=== PATIENT | female | born 1950 | race Caucasian/White ===

== ENCOUNTER 2020-07-31 10:22 | Inpatient (IN) | payer MEDICARE, BC, SELFPAY ==
[2020-07-31] VITALS (57 sets, daily range): BP systolic 112–146; BP diastolic 61–85; PULSE 101–124; RESP 10–25; TEMP 36.1–36.8; O2SAT 92–97
--- NOTE | 2020-07-31 10:30 | RT.EKG_ITS ---
APPROVED REPORT Exam: Resting ECG Patient Location: E HR:106 bpm ECG Measurements Heart Rate 106 AXIS UT 167 P 38 QRSd 90 QRS 24 QT 336 T 30 QTc 447 Conclusion Sinus tachycardia...rate> 99
--- NOTE | 2020-07-31 10:45 | ED.GENADUL_ITS ---
Discharge Plan Disposition Patient Disposition: [facility] INPATIENT Condition: Stable Discharge Details Chief Complaint: Nausea/Vomit/Diar Clinical Impression: Vomiting Primary Care Provider: Jelena Jaramillo ED Provider: Jeffrey Marroquin Home Meds and New Rx's Prescriptions: No Action ibuprofen 200 MG tablet 400 - 600 mg PO PRN RF: 0 Cholest Off 450 MG tablet 2 tab PO BID RF: 0 docusate sodium 50 mg Capsule 50 mg PO DAILY PRNRF: 0 prochlorperazine maleate 10 mg Tablet 10 mg PO Q6H PRNRF: 0 tramadol 50 mg Tablet 50 mg PO Q8H PRNRF: 0 lorazepam 0.5 mg Tablet 0.5 mg PO Q4H PRN PRNRF: 0 dexamethasone 2 mg Tablet See Rx Instructions .ROUTE .COMPLEX RF: 0 omeprazole 20 mg Capsule,Delayed Release(Dr/Ec) 20 mg PO DAILY RF: 0 loratadine [Claritin] 10 mg Tablet 10 mg PO DAILY RF: 0 ondansetron HCl 4 MG tablet 8 mg PO Q8H PRN RF: 0 Discharge Instructions Referrals: Osmin Alex [ NON-[facility] STAFF PHYSICIAN] - Medical Decision Making 70-year-old female with right breast cancer for which she is receiving chemotherapy. Her second dose was July 22. Now with 2 to 3 days of general weakness, intermittent pounding headache, nausea and vomiting with intolerance of p.o. She has not had a fever. No bloody stool or emesis. She has not fallen or hit her head. She is tachycardic and dehydrated in appearance. Differential diagnosis includes dehydration, electrolyte/metabolic abnormalities, must exclude metastatic disease to brain or abdomen. Patient had IV access established, fluid bolus initiated, given antiemetic and referred for laboratory testing and imaging studies. Labs noted demargination of white blood cell count of 26, hematocrit of 32, platelets 174. Electrolytes noted sodium 135, potassium 3.4, BUN 13, creatinine 1.2. No comparisons available. LFTs are slightly elevated with an AST of 40, ALT 122. Total bili 0.2. Lipase 123. CT scan of the head without acute findings. CT chest/abd/pelvis no evidence of acute abnormality, no evidence of metastatic disease. Patient improved following medications, small aliquot of morphine, 2 L of fluid. She continues to struggle to be able to take adequate liquids by mouth and remains tachycardic with a pulse at rest of 120. With discussed admission for fluid resuscitation with hospitalist team. Lab Data Lab results reviewed: Yes I reviewed the patient's lab results. Labs: Laboratory Results - last 24 hr 07/31/20 07/31/20 11:07 11:07 WBC 26.46 H* RBC 3.63 L Hgb 10.9 L Hct 32.9 L MCV 90.6 MCH 30.0 MCHC 33.1 RDW 13.2 Plt Count 174 MPV 10.0 Immature Gran % See Differential Neutrophils % 55.0 Band Neutrophils % 24 Lymphocytes % 7.0 Monocytes % 6.0 Eosinophils % 0.0 Basophils % 0.0 Metamyelocytes % 3 Myelocytes % 5 Nucleated RBC % 0 Absolute Neutrophils 20.90 H Absolute Lymphocytes 1.85 Absolute Monocytes 1.59 H Absolute Eosinophils 0.00 Absolute Basophils 0.00 RBC Morphology See below Polychromasia Present Sodium 135 L Potassium 3.4 L Chloride 99 Carbon Dioxide 27.5 Anion Gap 8.5 BUN 13 Creatinine 1.27 H Estimated GFR/1.73 m2 41.36 Glucose 139 H Calcium 9.2 Magnesium 1.7 L Total Bilirubin 0.2 AST 40 H ALT 122 H Alkaline Phosphatase 256 H Troponin I < 0.05 Total Protein 6.7 Albumin 3.5 Lipase 123 HPI General Mode of arrival: ambulatory . Date/Time Provider Initiated Documentation: 07/31/20 10:23 . Limitations to Documentation: no limitations . Information obtained by: patient . History of Present Illness 70 year old F presents to the emergency department with the chief complaint of Vomiting, headache, breast cancer on chemotherapy, described as moderate, Quality is described as constant, and is localized to the head and abdomen. Patient reports no radiation. Patient started experiencing this day(s) and it has been intermittent. No relieving factors improve symptom(s), Eating worsens symptoms . Patient notes headaches, loss of appetite, nausea/vomiting and weakness; denies fever/chills, shortness of breath and syncope. Related Data Home Medications Medication Instructions Recorded Confirmed ibuprofen 400 - 600 mg PO PRN 06/24/13 07/31/20 plant stanol rachel [Cholest Off] 2 tab PO BID 06/24/13 07/31/20 dexamethasone See Rx Instructions .ROUTE .COMPLEX 07/31/20 07/31/20 docusate sodium 50 mg PO DAILY PRN 07/31/20 07/31/20 loratadine [Claritin] 10 mg PO DAILY 07/31/20 07/31/20 lorazepam 0.5 mg PO Q4H PRN PRN 07/31/20 07/31/20 omeprazole 20 mg PO DAILY 07/31/20 07/31/20 ondansetron HCl 8 mg PO Q8H PRN 07/31/20 07/31/20 prochlorperazine maleate 10 mg PO Q6H PRN 07/31/20 07/31/20 tramadol 50 mg PO Q8H PRN 07/31/20 07/31/20 Allergies Allergy/AdvReac Type Severity Reaction Status Date / Time No Known Allergies Allergy Unverified 07/31/20 10:33 General Stated Complaint: Nausea/Vomit/Diar DENIZ: 3 Review of Systems Narrative: 6 systems reviewed and otherwise negative. [facility] Medical History Breast mass, right Surgical History Biopsy of breast NEG X 2 Colonoscopy - IV Sedation (~09/2006) Family History Mother Heart disease ID Father Heart disease ID Sister No problems noted. Sister No problems noted. Brother Heart disease ID Social History Substance use type: does not use Do you feel safe at home: Yes Do you feel safe in your relationship?: Yes Exam Narrative Exam Narrative: GEN: awake, alert, oriented 3. Pleasant, well groomed, interactive. HEAD: Normocephalic, atraumatic ENT: Mucous membranes dry, oropharynx unremarkable, External ear exam unremarkable EYES: PERRL, EOMI NECK: Full ROM, no MARISOL, no menigismus CHEST/RESP: Nontender, clear to auscultation bilateral, no wheeze/rhonchi/rales CARDIOVASCULAR: RRR, tachycardic. 2+ Rad pulse bilateral ABDOMEN: Soft, nontender, no mass. +Bowel sounds EXT: Full ROM, no edema, no rash Neuro: Grossly normal neurologic exam, conversant, interactive. Psych: Speech fluent, thoughts congruent, affect flat Course Vital Signs Vital signs: Vital Signs Temperature 36.1 C L 07/31/20 10:30 Pulse 113 H 07/31/20 10:30 Respiratory Rate 07/31/20 10:30 Blood Pressure 144/85 H 07/31/20 10:30 Pulse Oximetry 94 L 07/31/20 10:30 Temperature 36.1 C L 07/31/20 10:30 Temperature Source Skin 07/31/20 10:30 Pulse 113 H 07/31/20 10:30 Respiratory Rate 07/31/20 10:30 Blood Pressure 144/85 H 07/31/20 10:30 Blood Pressure Position Sitting 07/31/20 10:30 Pulse Oximetry 94 L 07/31/20 10:30 Oxygen Delivery Method Room Air 07/31/20 10:30 Oxygen Flow Rate 0 07/31/20 10:30 Pain Level 07/31/20 10:30
--- NOTE | 2020-07-31 10:45 | DI.CT_ITS ---
EXAM: CT HEAD WO CLINICAL HISTORY: Vomiting, history of breast cancer. TECHNIQUE: Imaging Protocol: Axial computed tomography images with coronal and sagittal reformatted images were created and reviewed COMPARISON: No exams were available for comparison FINDINGS: Ventricles and Extra axial spaces: Normal in size and morphology for the patient's age. Hemorrhage: None. Cerebral parenchyma: Normal. Midline shift: None. Brainstem/Cerebellum: Normal. Calvarium: Normal. Visualized Paranasal sinuses/Mastoids: Clear. IMPRESSION: No acute intracranial process. RADIATION DOSE DELIVERED: Total DLP DATA REPOSITORY: All CT scans at this facility are submitted to the National Radiology Data Registry (NRDR) Dose Index Registry (DIR) with the [employer] (ACR). RADIATION OPTIMIZATION: All CT scans at this facility use at least one of these dose optimization te chniques: automated exposure control; mA and/or kV adjustment per patient size (includes targeted exa ms where dose is matched to clinical indication); or iterative reconstruction.
[2020-07-31] MEDS: Normal Saline 1,000 ML 1000 ML IV ×2 (11:01→12:50)
[2020-07-31] MEDS: Ondansetron 4 MG/2 ML VIAL IVP (11:02)
[2020-07-31] MEDS: ACETAMINOPHEN 1,000 MG/100 ML BTL 400 MG IVPB (11:02)
[2020-07-31 11:19] LABS: Abs Immature Grans 2.95 10^3/uL (0.0-0.06); HCT 32.9 % (36.0-46.0); HGB 10.9 g/dL (11.2-15.7); MCHC 33.1 % (32.0-36.0); MCV 90.6 fL (80-95); Nucleated RBC 0 %; Platelet Count 174 10^3/uL (130-400); RBC 3.63 10^6/uL (3.93-5.22); RDW 13.2 % (11.7-14.6); RDW-SD 43.3 fL
[2020-07-31 11:28] LABS: WBC 26.46 10^3/uL (4.4-10.8)
[2020-07-31 11:46] LABS: ALT 122 U/L (14-59); AST 40 U/L (15-37); Albumin 3.5 g/dL (3.4-5.0); Alkaline Phosphatase 256 U/L (46-116); Anion Gap 8.5 mmol/L (3-11); BUN 13 mg/dL (7-18); Bilirubin, Total 0.2 mg/dL (0.2-1.0); CO2 27.5 mmol/L (21.0-32.0); CREATININE 1.27 mg/dL (0.55-1.02); Calcium 9.2 mg/dL (8.5-10.1); Chloride 99 mmol/L (98-107); Estimated GFR 41.36 (mL/min/1.73m2); Glucose 139 mg/dL (74-106); Lipase 123 U/L (73-393); Magnesium 1.7 mg/dL (1.8-2.4); Potassium 3.4 mmol/L (3.5-5.1); Sodium 135 mmol/L (136-145); Total Protein 6.7 g/dL (6.4-8.2); Troponin I < 0.05 ng/mL (<0.06)
[2020-07-31 11:54] LABS: Absolute Lymphocyte Count 1.85 10^3/uL (1.2-3.4); Absolute Monocyte Count 1.59 10^3/uL (0.1-0.8); Bands % 24; Metamyelocytes % 3; Myelocytes % 5
[2020-07-31 11:55] LABS: Diff Comment Manual Differential; Polychromasia Present
--- NOTE | 2020-07-31 12:00 | DI.CT_ITS ---
EXAM: CT CHEST/ABD/PEL W CLINICAL HISTORY: R Breast Ca, vomiting.. TECHNIQUE: Imaging Protocol: Axial computed tomography images with coronal and sagittal reformatted images were created and reviewed CONTRAST MATERIAL: Intravenous: Omnipaque 350 Contrast volume:100 Oral: / no COMPARISON: No exams were available for comparison FINDINGS: CHEST: A port overlies the left chest. The tip lies in the right atrium. Lungs appear clear with the excep tion of minimal basilar atelectasis. No pulmonary nodules are seen. There are atherosclerotic harrell es of the aorta and coronary arteries but no evidence of aneurysm or dissection. There are no pulmon jolly emboli. No lytic or blastic bony lesions or compression fractures are seen. ABDOMEN: Liver: Normal density. No measurable mass. Gallbladder and biliary tract: No radiodense calculus or dilation. Pancreas: Normal density, no abnormal calcifications or inflammatory process. Spleen: Normal. Kidneys: Normal size, contour and axis. No radiodense stones or obstructive uropathy. No masses seen. Adrenal glands: No masses seen. Aorta: Abdominal portion non-dilated. Atherosclerotic calcifications. Lymph nodes: Within normal limits. PELVIS: Bladder: Symmetric distention, no gross wall thickening. Bowel: No obstruction or bowel wall thickening. Normal appendix. Normal quantity of stool. Peritoneal cavity: No ascites, collection or mesenteric inflammatory response. Bones: Mild degenerative disc changes. Reproductive organs: Question of thickening of the endometrial stripe. Ovaries are normal in size. IMPRESSION: No evidence of an acute abnormality in the chest abdomen or pelvis. There is no evidence metastatic disease. There is apparent thickening of the endometrial stripe. Further evaluation with ultrasound is recommended. RADIATION DOSE DELIVERED: Total DLP DATA REPOSITORY: All CT scans at this facility are submitted to the National Radiology Data Registry (NRDR) Dose Index Registry (DIR) with the [employer] (ACR). RADIATION OPTIMIZATION: All CT scans at this facility use at least one of these dose optimization te chniques: automated exposure control; mA and/or kV adjustment per patient size (includes targeted exa ms where dose is matched to clinical indication); or iterative reconstruction.
[2020-07-31] MEDS: Omnipaque 350 MG/ML 100 ML BTL IJ (12:53)
[2020-07-31] MEDS: Normal Saline - Diluent 50 ML VIAL IV (12:53)
[2020-07-31] MEDS: Normal Saline Flush 10 ML SYR IVP (12:54)
--- NOTE | 2020-07-31 14:43 | NUR.NOTE ---
Nursing Note: Popsicle provided per MD Marroquin request to assess PO challenge.
[2020-07-31] MEDS: Normal Saline 1,000 ML 150 ML IV ×2 (17:39→23:53)
[2020-07-31] MEDS: Ketorolac 30 MG/ML VIAL IVP (18:12)
[2020-07-31] MEDS: Enoxaparin 40 MG/0.4 ML SYR SC (18:12)
[2020-07-31] MEDS: Pantoprazole 40 MG VIAL IVP (21:46)
[2020-07-31 22:21] LABS: Bilirubin Negative (Negative); Blood Trace-intact (Negative); Clarity Clear (Clear); Glucose Negative (Negative); Ketones Negative (Negative); Leukocyte Esterase Negative (Negative); Nitrite Negative (Negative); Urobilinogen 0.2 EU/dL (Up TO 0.2); pH 6.5 (5-8)
[2020-07-31 22:24] LABS: Bacteria Rare HPF (Negative); C & S Indicated? No; Casts Negative LPF (Negative); Crystals Negative HPF (Negative); Epithelial Cells Few HPF (Negative); Mucus Negative (Negative); WBC Negative HPF (0-5)
[2020-08-01 01:15] LABS: COVID-19 RT-PCR UVMMC Result Negative (Negative)
[2020-08-01] MEDS: Ketorolac 30 MG/ML VIAL IVP (05:10)
[2020-08-01] MEDS: Normal Saline 1,000 ML 150 ML IV (06:03)
[2020-08-01] MEDS: Normal Saline Flush 10 ML SYR IVP ×3 (06:06→23:16)
--- NOTE | 2020-08-01 06:30 | W.PM.HP.N ---
Date of service: 07/31/20 Time of Service: 05:31 Assessment and Plan Assessment and plan (1) Intractable vomiting: Status: Acute Assessment and plan: Related to chemotherapy. Improved after IV Zofran but escalting again at time of arrival to the med-surg unit Phenergan 12.5mg IV Q4 prn option added. Cont IV fluids. Qualifiers: Nausea presence: with nausea (2) Headache: Status: Acute Assessment and plan: Related to vomitting and dehydration Morphine 2mg IV helped for a period of time in the ED Will add Toradol prn Qualifiers: Headache type: unspecified Headache chronicity pattern: acute headache (3) Breast cancer: Status: Chronic Assessment and plan: In treatment with chemotherapy; s/p second round on 07/22/2020 (4) Renal insufficiency: Status: Chronic Assessment and plan: Creatinine 1.27 Pre-renal secondary to volume loss from emesis. IV fluids. Monitor (5) Hypokalemia: Status: Acute Assessment and plan: Mild; K of 3.4 Replace oral when able. IV replacement. (6) Leukocytosis, unspecified: Status: Acute Assessment and plan: No infectious source noted. No fever. UA normal. No resp symptoms Likely demargination of WBC's from the stress of intractable vomitting Monitor History of Present Illness History of Present Illness Chief Complaint: Intractible vomitting Narrative: This is a 70 year old female that presented to the emergency department with chief complaint of Vomiting. She has a recent breast cancer diagnoses. She completed her second round of chemotherapy on 07/22/2020 and has had 2-3 days of N/V along with a headache. No radiation tx. Her N/V are worsened with oral intake. No fever, chills, shortness of breath, syncope. Labs significant for elevated WBC count of 26.46, Hgb of 10.9, platelets 174. K+ 3.4, Na 135, BUN 13, creatinine 1.2. Lipase 123. CT scan of the head without acute findings. CT chest/abd/pelvis no evidence of acute abnormality, no evidence of metastatic disease. Patient improved after receiving 2 L of IV fluids, IV Zofran and IV morphine 2mg. Review of Systems All systems reviewed & are unremarkable except as noted in HPI and below PFSH Medical History Breast mass, right Surgical History Biopsy of breast NEG X 2 Colonoscopy - IV Sedation (~09/2006) Family History Mother Heart disease [place] Father Heart disease [place] Sister No problems noted. Sister No problems noted. Brother Heart disease [place] Social History Smoking/Tobacco Use Status: Never Substance use type: does not use Do you feel safe at home: Yes Do you feel safe in your relationship?: Yes Meds Home Medications and Allergies Home Medications Medication Instructions Recorded Confirmed Type ibuprofen 400 - 600 mg PO PRN 06/24/13 07/31/20 History plant stanol rachel [Cholest Off] 2 tab PO BID 06/24/13 07/31/20 History dexamethasone See Rx Instructions .ROUTE .COMPLEX 07/31/20 07/31/20 History docusate sodium 50 mg PO DAILY PRN 07/31/20 07/31/20 History loratadine [Claritin] 10 mg PO DAILY 07/31/20 07/31/20 History lorazepam 0.5 mg PO Q4H PRN PRN 07/31/20 07/31/20 History omeprazole 20 mg PO DAILY 07/31/20 07/31/20 History ondansetron HCl 8 mg PO Q8H PRN 07/31/20 07/31/20 History prochlorperazine maleate 10 mg PO Q6H PRN 07/31/20 07/31/20 History tramadol 50 mg PO Q8H PRN 07/31/20 07/31/20 History Allergies Allergy/AdvReac Type Severity Reaction Status Date / Time No Known Allergies Allergy Unverified 07/31/20 10:33 Exam Const General: cooperative and ill appearing Nutritional Appearance: average body habitus Orientation: oriented x3 Eyes Sclera: sclerae normal Pupils: PERRL Resp Effort & Inspection: normal respiratory effort Auscultation: clear to auscultation bilaterally Cardio Rate: regular rate Rhythm: regular rhythm Heart Sounds: S1 normal and S2 normal GI Inspection: normal to inspection Palpation: soft Percussion: normal to percussion Auscultation: hyperactive bowel sounds Skin General skin exam: no rashes or lesions noted Extrem General: no clubbing, cyanosis or edema and no calf tenderness Results Labs Result diagrams: 07/31/20 11:07 07/31/20 11:07 Labs: Laboratory Results - last 24 hr 07/31/20 07/31/20 07/31/20 11:07 11:07 17:05 WBC 26.46 H* RBC 3.63 L Hgb 10.9 L Hct 32.9 L MCV 90.6 MCH 30.0 MCHC 33.1 RDW 13.2 Plt Count 174 MPV 10.0 Immature Gran % See Differential Neutrophils % 55.0 Band Neutrophils % 24 Lymphocytes % 7.0 Monocytes % 6.0 Eosinophils % 0.0 Basophils % 0.0 Metamyelocytes % 3 Myelocytes % 5 Nucleated RBC % 0 Absolute Neutrophils 20.90 H Absolute Lymphocytes 1.85 Absolute Monocytes 1.59 H Absolute Eosinophils 0.00 Absolute Basophils 0.00 RBC Morphology See below Polychromasia Present Sodium 135 L Potassium 3.4 L Chloride 99 Carbon Dioxide 27.5 Anion Gap 8.5 BUN 13 Creatinine 1.27 H Estimated GFR/1.73 m2 41.36 Glucose 139 H Calcium 9.2 Magnesium 1.7 L Total Bilirubin 0.2 AST 40 H ALT 122 H Alkaline Phosphatase 256 H Troponin I < 0.05 Total Protein 6.7 Albumin 3.5 Lipase 123 Urine Color Urine Clarity Urine pH Ur Specific [place] Urine Protein Urine Ketones Urine Blood Urine Nitrite Urine Bilirubin Urine Urobilinogen Ur Leukocyte Esterase Urine RBC Urine WBC Ur Epithelial Cells Urine Crystals Urine Bacteria Urine Casts Urine Mucus Ur Culture Indicated? Urine Glucose COVID-19 PCR Negative Nasopharyn COVID-19 PCR Not Applicable Ref Test Perform Site [place] [facility] 07/31/20 22:00 WBC RBC Hgb Hct MCV MCH MCHC RDW Plt Count MPV Immature Gran % Neutrophils % Band Neutrophils % Lymphocytes % Monocytes % Eosinophils % Basophils % Metamyelocytes % Myelocytes % Nucleated RBC % Absolute Neutrophils Absolute Lymphocytes Absolute Monocytes Absolute Eosinophils Absolute Basophils RBC Morphology Polychromasia Sodium Potassium Chloride Carbon Dioxide Anion Gap BUN Creatinine Estimated GFR/1.73 m2 Glucose Calcium Magnesium Total Bilirubin AST ALT Alkaline Phosphatase Troponin I Total Protein Albumin Lipase Urine Color Yellow Urine Clarity Clear Urine pH 6.5 Ur Specific [place] 1.010 Urine Protein Negative Urine Ketones Negative Urine Blood Trace-intact H Urine Nitrite Negative Urine Bilirubin Negative Urine Urobilinogen 0.2 Ur Leukocyte Esterase Negative Urine RBC 3-5 H Urine WBC Negative Ur Epithelial Cells Few Urine Crystals Negative Urine Bacteria Rare Urine Casts Negative Urine Mucus Negative Ur Culture Indicated? No Urine Glucose Negative COVID-19 PCR Nasopharyn COVID-19 PCR Ref Test Perform Site Last Vital Signs Temp 36.7 C 07/31/20 23:20 Pulse 109 H 07/31/20 23:20 Resp 17 07/31/20 23:20 BP 120/73 07/31/20 23:20 Pulse Ox 97 07/31/20 23:20 COVID-19 Screening Have you,or household,traveled outside [place] in last 14 days?: No Had IN PERSON contact w/suspected or confirmed C-19 person: No
[2020-08-01 07:16] LABS: Abs Immature Grans 1.97 10^3/uL (0.0-0.06); HCT 30.2 % (36.0-46.0); HGB 9.5 g/dL (11.2-15.7); MCH 29.3 pg (27.0-33.0); MCHC 31.5 % (32.0-36.0); MCV 93.2 fL (80-95); MPV 10.2 fL (8.0-11.0); Platelet Count 154 10^3/uL (130-400); RBC 3.24 10^6/uL (3.93-5.22); RDW 13.6 % (11.7-14.6); RDW-SD 46.1 fL
[2020-08-01 07:17] LABS: BUN 10 mg/dL (7-18); CREATININE 1.08 mg/dL (0.55-1.02); Calcium 8.3 mg/dL (8.5-10.1); Chloride 106 mmol/L (98-107); Estimated GFR 49.87 (mL/min/1.73m2); Magnesium 1.6 mg/dL (1.8-2.4); Potassium 3.4 mmol/L (3.5-5.1); Sodium 139 mmol/L (136-145)
[2020-08-01 07:41] LABS: WBC 25.43 10^3/uL (4.4-10.8)
[2020-08-01 07:52] LABS: Glucose 80 mg/dL (74-106)
[2020-08-01 08:07] VITALS: BP 127/77; PULSE 97; RESP 18; TEMP 36.5; O2SAT 97
[2020-08-01 08:14] LABS: Bands % 18
[2020-08-01 08:15] LABS: Absolute Lymphocyte Count 1.78 10^3/uL (1.2-3.4); Absolute Monocyte Count 1.53 10^3/uL (0.1-0.8); Diff Comment Manual Differential; Metamyelocytes % 4; Myelocytes % 2
[2020-08-01 08:16] LABS: Basophilic Stippling Present; Polychromasia Present
--- NOTE | 2020-08-01 09:11 | PDOC.CMIN ---
- If Service Date Differs Date of service: 08/01/20 Time of Service: 17:06 Care Management Initial Assess REASON FOR HOSPITALIZATION:: Vomitting PAST MEDICAL HISTORY/PAST SURGICAL HISTORY:: This is a 70 year old female that presented to the emergency department with chief complaint of Vomiting. She has a recent breast cancer diagnoses. She completed her second round of chemotherapy on 07/22/2020 and has had 2-3 days of N/V along with a headache. Breast mass; right. Breast biopsy, colonoscopy PREVIOUS FUNCTIONAL STATUS/SOCIAL/FAMILY SUPPORTS:: Lorri resides in [facility] with her , [place]. She is independent at baseline, but currently struggling with the side effects of chemotherapy. CURRENT FUNCTIONAL STATUS:: Lorri did not feel well throughout the day, she is struggling with intense migraines and had her door shut with low stim environment. CM continues to follow. Has patient been provided with info about the portal/API?: Yes Did the patient sign up for the portal?: No CODE STATUS:: Full Code INSURANCE COVERAGE / FINANCIAL ISSUES:: Medicare. BC/BS CURRENT HOME/COMMUNITY SERVICES/EQUIPMENT:: Current oncology patient at [facility]: chemotherapy for breast cancer. PRIMARY CARE PHYSICIAN:: Jelena Jaramillo POTENTIAL DISCHARGE NEEDS:: Follow up appointments. PATIENT/FAMILY EDUCATION NEEDS:: Review discharge instructions, discuss Ask Me Three. ANTICIPATED BARRIERS TO DISCHARGE:: None identified. TRANSPORTATION:: Via private vehicle with family. PLAN:: Lorri will return home when ready per MD. She will follow up with her PCP, oncologist and plan of care as prescribed. She will transport via private vehicle with family.
[2020-08-01] MEDS: Cetirizine 10 MG TAB PO (09:54)
[2020-08-01] MEDS: MAGNESIUM SULFATE 2 GM/50 ML BAG IVPB (09:54)
[2020-08-01] MEDS: POTASSIUM CHLORIDE/0.9% NACL 1,000 ML 100 MEQ IV ×2 (09:58→20:07)
[2020-08-01] MEDS: SUMAtriptan 6 MG/0.5 ML VIAL SC (11:22)
--- NOTE | 2020-08-01 14:09 | W.PM.PROGNOT ---
Date of Service Date of service: 08/01/20 Time of Service: 14:12 Assessment and Plan Assessment and plan (1) Headache: Start date: 08/01/20 Start time: 14:40 Status: Acute Assessment and plan: This sounds to be migraine in nature, with blurred vision, n/v, lightheadedness, CT scan revealing sinus to be clear. N/v gets worse when getting up and rachel gets worse when getting up, this is likely d/t chemo Tried 100% oxygen, little relief Given imitrex with moderate relief. Will give IM phenergan and toradol, with muscle relaxer at bed time Qualifiers: Headache chronicity pattern: acute headache Intractability: intractable (2) Intractable vomiting: Start date: 08/01/20 Start time: 14:40 Status: Acute Assessment and plan: Improving, tolerating clears, improving sx with improving migraine, will advance to soft diet. Qualifiers: Nausea presence: with nausea (3) Breast cancer: Start date: 08/01/20 Start time: 14:47 Status: Chronic Assessment and plan: In treatment with chemotherapy; s/p second round on 07/22/2020 Qualifiers: Breast location: unspecified site of breast Estrogen receptor status: positive Patient sex: female Laterality: right Qualified Code(s): C50.911 - Malignant neoplasm of unspecified site of right female breast; Z17.0 - Estrogen receptor positive status [ER+] (4) Renal insufficiency: Start date: 08/01/20 Start time: 14:47 Status: Chronic Assessment and plan: Improved. Creatinine 1.08 will recheck in am (5) Hypokalemia: Start date: 08/01/20 Start time: 14:48 Status: Acute Assessment and plan: Mild; K of 3.4 IV replacement. (6) Leukocytosis, unspecified: Start date: 08/01/20 Start time: 14:48 Status: Acute Assessment and plan: No infectious source noted. No fever. UA normal. No resp symptoms She does take dexamethasone BID post chemo which could drive the leukocytosis with n/v as well recheck in am Above case discussed with Dr. Santo who is in agreement. Qualifiers: Leukocytosis type: other Qualified Code(s): D72.828 - Other elevated white blood cell count Subjective Subjective Patient reports: other Interval history since last seen: She is not feeling well today, c/o rachel that sound to be a migraine in nature, blurred vision, light sensitivity, dizziness, when patient gets up she then feels the need to vomit, her rachel also gets worse. Tried 100% oxygen with minimal relief, then given imitrex subcu, this has given more relief but still c/o dizziness, blurred vision, n/v Exam Const General: cooperative and ill appearing Nutritional Appearance: average body habitus Orientation: oriented x3 Eyes Sclera: sclerae normal Pupils: PERRL Resp Effort & Inspection: normal respiratory effort Auscultation: clear to auscultation bilaterally Cardio Rate: regular rate Rhythm: regular rhythm Heart Sounds: S1 normal and S2 normal GI Inspection: normal to inspection Palpation: soft Percussion: normal to percussion Auscultation: hyperactive bowel sounds Skin General skin exam: no rashes or lesions noted Extrem General: no clubbing, cyanosis or edema and no calf tenderness Objective Objective Clinical Data: Abnormal lab results 07/31/20 08/01/20 08/01/20 Range/Units 22:00 06:10 06:10 WBC 25.43 H* (4.4-10.8) 10^3/uL RBC 3.24 L (3.93-5.22) 10^6/uL Hgb 9.5 L (11.2-15.7) g/dL Hct 30.2 L (36.0-46.0) % MCHC 31.5 L (32.0-36.0) % Absolute Neutrophils 20.60 H (1.2-6.7) 10^3/uL Absolute Monocytes 1.53 H (0.1-0.8) 10^3/uL Potassium 3.4 L (3.5-5.1) mmol/L Creatinine 1.08 H (0.55-1.02) mg/dL Calcium 8.3 L (8.5-10.1) mg/dL Magnesium 1.6 L (1.8-2.4) mg/dL Urine Blood Trace-intact H (Negative) Urine RBC 3-5 H (0-2) HPF Vital Signs Temperature 36.5 C 08/01/20 08:07 Temperature Source Tympanic 08/01/20 08:07 Pulse 97 H 08/01/20 08:07 Pulse Rhythm Regular 08/01/20 10:46 Pulse 109 H 07/31/20 16:50 Respiratory Rate 18 08/01/20 08:07 Respiratory Effort Non-Labored 08/01/20 10:46 Respiratory Depth Normal 08/01/20 10:46 Respiratory Pattern Normal 08/01/20 10:46 Blood Pressure 127/77 08/01/20 08:07 Blood Pressure Mean 78 07/31/20 16:31 Blood Pressure Position Sitting 07/31/20 10:30 Pulse Oximetry 97 08/01/20 08:07 Oxygen Delivery Method Room Air 08/01/20 08:07 Oxygen Flow Rate 0 08/01/20 08:07 Pain Level 7 08/01/20 08:07 Comment 07/31/20 23:20 Intake & Output 07/31/20 08/01/20 08/01/20 23:59 11:59 23:59 Intake Total 1935 / 1935 2577.5 / 2628.5 51 / 2628.5 Output Total 900 / 900 Balance 1035 / 1035 2577.5 / 2628.5 51 / 2628.5 Weight 53.524 kg Intake: IV 1935 / 1935 2217.5 / 2268.5 51 / 2268.5 Oral 360 / 360 Output: Urine 800 / 800 Emesis 100 / 100 Other: Urine Color Pale Yellow Urine Appearance Clear Clear Urine Odor None Comment Was unaware the patient needed a urine specimen, rn aware. Emesis Description Retching Bile Voiding Methods Toilet Laboratory Results WBC 25.43 10^3/uL (4.4-10.8) H* 08/01/20 06:10 RBC 3.24 10^6/uL (3.93-5.22) L 08/01/20 06:10 Hgb 9.5 g/dL (11.2-15.7) L 08/01/20 06:10 Hct 30.2 % (36.0-46.0) L 08/01/20 06:10 MCV 93.2 fL (80-95) 08/01/20 06:10 MCH 29.3 pg (27.0-33.0) 08/01/20 06:10 MCHC 31.5 % (32.0-36.0) L 08/01/20 06:10 RDW 13.6 % (11.7-14.6) 08/01/20 06:10 Plt Count 154 10^3/uL (130-400) 08/01/20 06:10 MPV 10.2 fL (8.0-11.0) 08/01/20 06:10 Immature Gran % See Differential 08/01/20 06:10 Neutrophils % 63.0 08/01/20 06:10 Band Neutrophils % 18 08/01/20 06:10 Lymphocytes % 7.0 08/01/20 06:10 Monocytes % 6.0 08/01/20 06:10 Eosinophils % 0.0 08/01/20 06:10 Basophils % 0.0 08/01/20 06:10 Metamyelocytes % 4 08/01/20 06:10 Myelocytes % 2 08/01/20 06:10 Nucleated RBC % 0 % 07/31/20 11:07 Absolute Neutrophils 20.60 10^3/uL (1.2-6.7) H 08/01/20 06:10 Absolute Lymphocytes 1.78 10^3/uL (1.2-3.4) 08/01/20 06:10 Absolute Monocytes 1.53 10^3/uL (0.1-0.8) H 08/01/20 06:10 Absolute Eosinophils 0.00 10^3/uL (0.0-0.7) 08/01/20 06:10 Absolute Basophils 0.00 10^3/uL (0.0-0.2) 08/01/20 06:10 RBC Morphology See below 08/01/20 06:10 Polychromasia Present 08/01/20 06:10 Basophilic Stippling Present 08/01/20 06:10 Sodium 139 mmol/L (136-145) 08/01/20 06:10 Potassium 3.4 mmol/L (3.5-5.1) L 08/01/20 06:10 Chloride 106 mmol/L (98-107) 08/01/20 06:10 Carbon Dioxide 25.0 mmol/L (21.0-32.0) 08/01/20 06:10 Anion Gap 8.0 mmol/L (3-11) 08/01/20 06:10 BUN 10 mg/dL (7-18) 08/01/20 06:10 Creatinine 1.08 mg/dL (0.55-1.02) H 08/01/20 06:10 Estimated GFR/1.73 m2 49.87 (mL/min/1.73m2) 08/01/20 06:10 Glucose 80 mg/dL (74-106) D 08/01/20 06:10 Calcium 8.3 mg/dL (8.5-10.1) L 08/01/20 06:10 Magnesium 1.6 mg/dL (1.8-2.4) L 08/01/20 06:10 Total Bilirubin 0.2 mg/dL (0.2-1.0) 07/31/20 11:07 AST 40 U/L (15-37) H 07/31/20 11:07 ALT 122 U/L (14-59) H 07/31/20 11:07 Alkaline Phosphatase 256 U/L (46-116) H 07/31/20 11:07 Troponin I < 0.05 ng/mL (<0.06) 07/31/20 11:07 Total Protein 6.7 g/dL (6.4-8.2) 07/31/20 11:07 Albumin 3.5 g/dL (3.4-5.0) 07/31/20 11:07 Lipase 123 U/L (73-393) 07/31/20 11:07 Urine Color Yellow (Yellow) 07/31/20 22:00 Urine Clarity Clear (Clear) 07/31/20 22:00 Urine pH 6.5 (5-8) 07/31/20 22:00 Ur Specific [place] 1.010 (1.005-1.025) 07/31/20 22:00 Urine Protein Negative mg/dL (Negative) 07/31/20 22:00 Urine Ketones Negative mg/dL (Negative) 07/31/20 22:00 Urine Blood Trace-intact (Negative) H 07/31/20 22:00 Urine Nitrite Negative (Negative) 07/31/20 22:00 Urine Bilirubin Negative (Negative) 07/31/20 22:00 Urine Urobilinogen 0.2 EU/dL (Up TO 0.2) 07/31/20 22:00 Ur Leukocyte Esterase Negative (Negative) 07/31/20 22:00 Urine RBC 3-5 HPF (0-2) H 07/31/20 22:00 Urine WBC Negative HPF (0-5) 07/31/20 22:00 Ur Epithelial Cells Few HPF (Negative) 07/31/20 22:00 Urine Crystals Negative HPF (Negative) 07/31/20 22:00 Urine Bacteria Rare HPF (Negative) 07/31/20 22:00 Urine Casts Negative LPF (Negative) 07/31/20 22:00 Urine Mucus Negative (Negative) 07/31/20 22:00 Ur Culture Indicated? No 07/31/20 22:00 Urine Glucose Negative mg/dL (Negative) 07/31/20 22:00 COVID-19 PCR Negative (Negative) 07/31/20 17:05 Nasopharyn COVID-19 PCR Not Applicable 07/31/20 17:05 Ref Test Perform Site [facility] lab 07/31/20 17:05
--- NOTE | 2020-08-01 14:18 | PHA.REVIEW ---
Pharmacy Admission Review - Admission Clinical Review (Last Reviewed 08/01/20 @ 06:40 by Matthew Santo MD) Leukocytosis, unspecified (Acute) Hypokalemia (Acute) Headache (Acute) Intractable vomiting (Acute) Vomiting (Acute) No Known Allergies Allergy (Unverified 07/31/20 10:33) Height 5 ft 1.81 in Weight 53.524 kg - Renal Dosing Renal Dosing: BUN 10 mg/dL (7-18) 08/01/20 06:10 Creatinine 1.08 mg/dL (0.55-1.02) H 08/01/20 06:10 Medications needing adjustments: Intervened (suggested ketorolac dose of 30mg vs 60mg. provider would like the 60mg dose given as a one time) - Anticoagulation Anticoagulation: Hgb 9.5 g/dL (11.2-15.7) L 08/01/20 06:10 Hct 30.2 % (36.0-46.0) L 08/01/20 06:10 Plt Count 154 10^3/uL (130-400) 08/01/20 06:10 Creatinine 1.08 mg/dL (0.55-1.02) H 08/01/20 06:10 - Relevant Labs Sodium 139 mmol/L (136-145) 08/01/20 06:10 Potassium 3.4 mmol/L (3.5-5.1) L 08/01/20 06:10 Chloride 106 mmol/L (98-107) 08/01/20 06:10 Magnesium 1.6 mg/dL (1.8-2.4) L 08/01/20 06:10 - DM Control DM Control: Glucose 80 mg/dL (74-106) D 08/01/20 06:10 - Heart Failure/FL Heart Failure/FL: Troponin I < 0.05 ng/mL (<0.06) 07/31/20 11:07 - BP Control BP Control: Blood Pressure 127/77
[2020-08-01 15:20] VITALS: BP 138/74; PULSE 88; RESP 17; TEMP 37.2; O2SAT 96
[2020-08-01] MEDS: Ketorolac 60 MG/2 ML VIAL IM (15:42)
[2020-08-01] MEDS: Enoxaparin 40 MG/0.4 ML SYR SC (17:38)
[2020-08-01 19:30] VITALS: BP 123/73; PULSE 75; RESP 18; TEMP 37.2; O2SAT 97
[2020-08-01] MEDS: Pantoprazole 40 MG VIAL IVP (21:31)
[2020-08-01] MEDS: Baclofen 10 MG TAB PO (21:31)
[2020-08-01] MEDS: Ketorolac 15 MG/ML VIAL IVP (23:16)
[2020-08-02 03:15] VITALS: BP 133/84; PULSE 98; RESP 17; TEMP 36.4; O2SAT 97
[2020-08-02] MEDS: POTASSIUM CHLORIDE/0.9% NACL 1,000 ML 100 MEQ IV ×2 (06:03→17:12)
[2020-08-02] MEDS: Ketorolac 15 MG/ML VIAL IVP ×2 (06:34→19:04)
[2020-08-02] MEDS: Normal Saline Flush 10 ML SYR IVP ×4 (06:36→21:54)
[2020-08-02 07:27] LABS: Abs Immature Grans 1.68 10^3/uL (0.0-0.06); HCT 27.6 % (36.0-46.0); HGB 8.9 g/dL (11.2-15.7); MCH 29.4 pg (27.0-33.0); MCHC 32.2 % (32.0-36.0); MCV 91.1 fL (80-95); MPV 9.9 fL (8.0-11.0); Nucleated RBC 0 %; Platelet Count 140 10^3/uL (130-400); RBC 3.03 10^6/uL (3.93-5.22); RDW-SD 46.1 fL
[2020-08-02 07:31] LABS: Anion Gap 8.9 mmol/L (3-11); BUN 10 mg/dL (7-18); CO2 23.1 mmol/L (21.0-32.0); CREATININE 1.02 mg/dL (0.55-1.02); Calcium 8.5 mg/dL (8.5-10.1); Chloride 107 mmol/L (98-107); Estimated GFR 53.27 (mL/min/1.73m2); Glucose 71 mg/dL (74-106); Magnesium 1.9 mg/dL (1.8-2.4); Potassium 3.8 mmol/L (3.5-5.1); Sodium 139 mmol/L (136-145)
[2020-08-02 07:47] LABS: WBC 28.21 10^3/uL (4.4-10.8)
[2020-08-02] MEDS: Cetirizine 10 MG TAB PO (07:47)
[2020-08-02 07:48] VITALS: BP 159/86; PULSE 95; RESP 18; TEMP 36.9; O2SAT 98
[2020-08-02 07:49] LABS: Absolute Lymphocyte Count 1.69 10^3/uL (1.2-3.4); Absolute Monocyte Count 1.41 10^3/uL (0.1-0.8); Bands % 10; Diff Comment Manual Differential; Metamyelocytes % 4; Myelocytes % 1; Polychromasia Present
[2020-08-02 08:06] LABS: C-Reactive Protein 2.24 mg/dL (0.0-0.3)
[2020-08-02 08:22] LABS: Lactate 0.6 mmol/L (0.6-1.4)
[2020-08-02] MEDS: cefTRIAXone 2 GM/50 ML BAG IVPB (08:35)
[2020-08-02 08:53] LABS: Procalcitonin 0.1 ng/mL
--- NOTE | 2020-08-02 09:16 | W.PM.PROGNOT ---
Documented by User: Sonia Masters NP 08/02/20 09:33 Date of Service Date of service: 08/02/20 Time of Service: 09:16 Assessment and Plan Assessment and plan (1) Headache: Start date: 08/02/20 Start time: 09:25 Status: Acute Assessment and plan: Headache with neck pain continues. Increasing leukocytosis, procal at 0.1 with slightly elevated CRP, chemo could contribute to elevated CRP and procal, but in setting of leukocytosis will start prophylactic treatment for meningitis. Chemo pertuzumab according to Uptodate can lead to severe infections in 22% of population with 6% severe. Blood cultures pending Will defer to Dr. ashley for possible LP Qualifiers: Headache chronicity pattern: acute headache Intractability: intractable (2) Leukocytosis, unspecified: Start date: 08/02/20 Start time: 09:30 Status: Acute Assessment and plan: No infectious source noted. No fever. UA normal. No resp symptoms Increased this am to 28 with ANC increased As above Qualifiers: Leukocytosis type: other Qualified Code(s): D72.828 - Other elevated white blood cell count (3) Intractable vomiting: Start date: 08/02/20 Start time: 09:28 Status: Resolved Assessment and plan: Resolved. Able to tolerate soft diet Qualifiers: Nausea presence: with nausea (4) Breast cancer: Start date: 08/02/20 Start time: 09:29 Status: Chronic Assessment and plan: In treatment with chemotherapy; s/p second round on 07/22/2020 Qualifiers: Breast location: unspecified site of breast Estrogen receptor status: positive Laterality: right Patient sex: female Qualified Code(s): C50.911 - Malignant neoplasm of unspecified site of right female breast; Z17.0 - Estrogen receptor positive status [ER+] (5) Increased endometrial stripe thickness: Start date: 08/02/20 Start time: 09:31 Status: Acute Assessment and plan: Found on CT, given recent Breast Ca dx with current treatment will order pelvic u/s with gyno consult, for further investigation (6) Renal insufficiency: Start date: 08/02/20 Start time: 09:33 Status: Chronic Assessment and plan: Improved. Normal renal function (7) Hypokalemia: Start date: 08/02/20 Start time: 09:33 Status: Resolved Assessment and plan: 3.8 IV replacement. above case discussed with Dr. Ashley who is in agreement. Subjective Subjective Patient reports: other Interval history since last seen: Continues to have neck pain with headache. Increasing leukocytosis without fever, anemia present, drop in hemoglobin, could be due to dilution heme test stool. Concern for infection, crp is slightly elevated with elevated procal, lactate normal. There could be bacterial component, may need to preform LP, due to neck pain and migraine, will place on prophylactic treatment. Negative brudiniski and kernig. BC pending. will make inpatient, no nausea or vomiting at this time. Exam Narrative Exam Narrative: Elderly female, with thinning hair, due to chemo lying in bed, AAOx3, appears ill. Neck pain with throbbing sensation though able to move neck in all positions. LSC, RRR no murmur or ectopic beats. No JVD or CVA. FROM with all extremities. Abd soft nontender, BSx4 Objective Objective Clinical Data: Abnormal lab results 08/02/20 08/02/20 08/02/20 Range/Units 06:10 06:10 06:10 WBC 28.21 H* (4.4-10.8) 10^3/uL RBC 3.03 L (3.93-5.22) 10^6/uL Hgb 8.9 L (11.2-15.7) g/dL Hct 27.6 L (36.0-46.0) % Absolute Neutrophils 23.70 H (1.2-6.7) 10^3/uL Absolute Monocytes 1.41 H (0.1-0.8) 10^3/uL Glucose 71 L (74-106) mg/dL C-Reactive Protein 2.24 H (0.0-0.3) mg/dL Vital Signs Temperature 36.9 C 08/02/20 07:48 Temperature Source Tympanic 08/02/20 07:48 Pulse 95 H 08/02/20 07:48 Pulse Rhythm Regular 08/02/20 03:57 Pulse 109 H 07/31/20 16:50 Respiratory Rate 18 08/02/20 07:48 Respiratory Effort Non-Labored 08/02/20 03:57 Respiratory Depth Normal 08/02/20 03:57 Respiratory Pattern Normal 08/02/20 03:57 Blood Pressure 159/86 H 08/02/20 07:48 Blood Pressure Mean 78 07/31/20 16:31 Blood Pressure Position Sitting 07/31/20 10:30 Pulse Oximetry 98 08/02/20 07:48 Oxygen Delivery Method Room Air 08/02/20 07:48 Oxygen Flow Rate 0 08/02/20 07:48 Pain Level 4 08/02/20 07:48 Comment 07/31/20 23:20 Intake & Output 08/01/20 08/01/20 08/02/20 11:59 23:59 11:59 Intake Total 2577.5 / 3867.5 1290 / 3867.5 1003.333 / 1003.333 Output Total 200 / 200 600 / 600 Balance 2577.5 / 3667.5 1090 / 3667.5 403.333 / 403.333 Intake: IV 2217.5 / 3217.5 1000 / 3217.5 1003.333 / 1003.333 Oral 360 / 650 290 / 650 Output: Urine 200 / 200 600 / 600 Other: Urine Color Pale Yellow Yellow Urine Appearance Clear Clear Clear Urine Odor Normal Normal Stool Size Small Stool Characteristics Soft Formed Voiding Methods Bedside Commode Toilet Laboratory Results WBC 28.21 10^3/uL (4.4-10.8) H* 08/02/20 06:10 RBC 3.03 10^6/uL (3.93-5.22) L 08/02/20 06:10 Hgb 8.9 g/dL (11.2-15.7) L 08/02/20 06:10 Hct 27.6 % (36.0-46.0) L 08/02/20 06:10 MCV 91.1 fL (80-95) 08/02/20 06:10 MCH 29.4 pg (27.0-33.0) 08/02/20 06:10 MCHC 32.2 % (32.0-36.0) 08/02/20 06:10 RDW 14.0 % (11.7-14.6) 08/02/20 06:10 Plt Count 140 10^3/uL (130-400) 08/02/20 06:10 MPV 9.9 fL (8.0-11.0) 08/02/20 06:10 Immature Gran % See Differential 08/02/20 06:10 Neutrophils % 74.0 08/02/20 06:10 Band Neutrophils % 10 08/02/20 06:10 Lymphocytes % 6.0 08/02/20 06:10 Monocytes % 5.0 08/02/20 06:10 Eosinophils % 0.0 08/02/20 06:10 Basophils % 0.0 08/02/20 06:10 Metamyelocytes % 4 08/02/20 06:10 Myelocytes % 1 08/02/20 06:10 Nucleated RBC % 0 % 08/02/20 06:10 Absolute Neutrophils 23.70 10^3/uL (1.2-6.7) H 08/02/20 06:10 Absolute Lymphocytes 1.69 10^3/uL (1.2-3.4) 08/02/20 06:10 Absolute Monocytes 1.41 10^3/uL (0.1-0.8) H 08/02/20 06:10 Absolute Eosinophils 0.00 10^3/uL (0.0-0.7) 08/02/20 06:10 Absolute Basophils 0.00 10^3/uL (0.0-0.2) 08/02/20 06:10 RBC Morphology See below 08/02/20 06:10 Polychromasia Present 08/02/20 06:10 Basophilic Stippling Present 08/01/20 06:10 VBG Lactate 0.6 mmol/L (0.6-1.4) 08/02/20 08:12 Sodium 139 mmol/L (136-145) 08/02/20 06:10 Potassium 3.8 mmol/L (3.5-5.1) 08/02/20 06:10 Chloride 107 mmol/L (98-107) 08/02/20 06:10 Carbon Dioxide 23.1 mmol/L (21.0-32.0) 08/02/20 06:10 Anion Gap 8.9 mmol/L (3-11) 08/02/20 06:10 BUN 10 mg/dL (7-18) 08/02/20 06:10 Creatinine 1.02 mg/dL (0.55-1.02) 08/02/20 06:10 Estimated GFR/1.73 m2 53.27 (mL/min/1.73m2) 08/02/20 06:10 Glucose 71 mg/dL (74-106) L 08/02/20 06:10 Calcium 8.5 mg/dL (8.5-10.1) 08/02/20 06:10 Magnesium 1.9 mg/dL (1.8-2.4) 08/02/20 06:10 Total Bilirubin 0.2 mg/dL (0.2-1.0) 07/31/20 11:07 AST 40 U/L (15-37) H 07/31/20 11:07 ALT 122 U/L (14-59) H 07/31/20 11:07 Alkaline Phosphatase 256 U/L (46-116) H 07/31/20 11:07 Troponin I < 0.05 ng/mL (<0.06) 07/31/20 11:07 C-Reactive Protein 2.24 mg/dL (0.0-0.3) H 08/02/20 06:10 Total Protein 6.7 g/dL (6.4-8.2) 07/31/20 11:07 Albumin 3.5 g/dL (3.4-5.0) 07/31/20 11:07 Lipase 123 U/L (73-393) 07/31/20 11:07 Procalcitonin 0.1 ng/mL 08/02/20 08:12 Urine Color Yellow (Yellow) 07/31/20 22:00 Urine Clarity Clear (Clear) 07/31/20 22:00 Urine pH 6.5 (5-8) 07/31/20 22:00 Ur Specific [place] 1.010 (1.005-1.025) 07/31/20 22:00 Urine Protein Negative mg/dL (Negative) 07/31/20 22:00 Urine Ketones Negative mg/dL (Negative) 07/31/20 22:00 Urine Blood Trace-intact (Negative) H 07/31/20 22:00 Urine Nitrite Negative (Negative) 07/31/20 22:00 Urine Bilirubin Negative (Negative) 07/31/20 22:00 Urine Urobilinogen 0.2 EU/dL (Up TO 0.2) 07/31/20 22:00 Ur Leukocyte Esterase Negative (Negative) 07/31/20 22:00 Urine RBC 3-5 HPF (0-2) H 07/31/20 22:00 Urine WBC Negative HPF (0-5) 07/31/20 22:00 Ur Epithelial Cells Few HPF (Negative) 07/31/20 22:00 Urine Crystals Negative HPF (Negative) 07/31/20 22:00 Urine Bacteria Rare HPF (Negative) 07/31/20 22:00 Urine Casts Negative LPF (Negative) 07/31/20 22:00 Urine Mucus Negative (Negative) 07/31/20 22:00 Ur Culture Indicated? No 07/31/20 22:00 Urine Glucose Negative mg/dL (Negative) 07/31/20 22:00 COVID-19 PCR Negative (Negative) 07/31/20 17:05 Valentine COVID-19 PCR Not Applicable 07/31/20 17:05 Ref Test Perform Site [facility] 07/31/20 17:05 Documented by User: Prince Ashley 08/02/20 11:40
[2020-08-02 09:42] LABS: Iron 51 ug/dL (50-170)
[2020-08-02] MEDS: AMPICILLIN SODIUM 2 GM in Normal Saline 100 ML IVPB (10:09)
[2020-08-02 10:21] LABS: Vitamin B12 > 2000 pg/mL (193-986)
--- NOTE | 2020-08-02 10:56 | PDOC.CMPRO ---
Care Management Progress Note S/O: Lorri continues to have head and neck pain with migraines. Per provider, work up continues, and Lorri continues to be closely monitored. Lorri was sleeping soundly in her bed, and so was her in the chair at her bedside; CM did not disturb. CM continues to follow. A: 70 year old female admitted to [facility] 07/31/20 for Vomiting P: Lorri will return home when ready per MD. She will follow up with her PCP, oncologist and plan of care as prescribed. She will transport via private vehicle with family.
[2020-08-02] MEDS: LORazepam 2 MG/ML VIAL 0.5 MG IVP (11:02)
[2020-08-02 12:18] LABS: Glucose (CSF) 56 mg/dL (40-70)
[2020-08-02 12:23] LABS: Total Protein (CSF) 45 mg/dL (15-45)
[2020-08-02 12:32] LABS: Clarity Clear; Tube # 4; Xanthochromia Absent
[2020-08-02 12:33] LABS: RBC 1 /mm3 (0-5); WBC 1 /uL (0-5)
[2020-08-02] MEDS: Baclofen 10 MG TAB PO ×2 (13:41→19:12)
[2020-08-02 15:11] VITALS: BP 121/78; PULSE 89; RESP 17; TEMP 37.1; O2SAT 96
[2020-08-02 19:20] VITALS: BP 144/82; PULSE 88; RESP 18; TEMP 36.5; O2SAT 96
[2020-08-02] MEDS: Zolpidem 5 MG TAB PO (21:54)
[2020-08-02] MEDS: Pantoprazole 40 MG VIAL IVP (21:54)
[2020-08-02] MEDS: Acetaminophen 325 MG TAB 650 MG PO (21:54)
[2020-08-02 23:30] LABS: Enterovirus PCR, CSF Negative (Negative)
--- NOTE | 2020-08-03 | DI.US_ITS ---
EXAM: US PELVIS TRANSVAGINAL CLINICAL HISTORY: thickening of endometrial stripe, breast ca leukoc TECHNIQUE: Ultrasound performed using standard protocol. COMPARISON: No exams were available for comparison FINDINGS: Pelvic ultrasound was performed transabdominally and transvaginally. Please see the accompanying asim a sheet for measurements of pelvic structures. The uterus is unremarkable except for a mildly thicke sebastian endometrium, the endometrial stripe measures about 6 millimeters in thickness and appears heterog eneous with some possible fluid and/or calcifications present associated with the endometrium. Right ovary contains a 12 millimeter simple cyst. Right ovary otherwise unremarkable, left ovary non visualized. No free fluid identified in the cul-de-sac. The kidneys are unremarkable on limited scanning with no hydronephrosis or nephrolithiasis. IMPRESSION: Mildly thickened mildly heterogeneous endometrial stripe at 6 millimeters. This is an abnormal findi ng in this age group and correlation with endometrial biopsy should be considered. DATA REPOSITORY:
[2020-08-03] MEDS: POTASSIUM CHLORIDE/0.9% NACL 1,000 ML 100 MEQ IV ×2 (02:59→17:58)
[2020-08-03 03:10] VITALS: BP 144/84; PULSE 80; RESP 17; TEMP 36.1; O2SAT 97
[2020-08-03] MEDS: Ketorolac 15 MG/ML VIAL IVP (04:59)
[2020-08-03] MEDS: Acetaminophen 325 MG TAB 650 MG PO ×2 (04:59→08:22)
[2020-08-03] MEDS: Normal Saline Flush 10 ML SYR IVP ×2 (05:00→11:13)
[2020-08-03 07:27] VITALS: BP 147/84; PULSE 89; RESP 18; TEMP 36.9; O2SAT 96
[2020-08-03] MEDS: cefTRIAXone 2 GM/50 ML BAG IVPB (07:47)
[2020-08-03] MEDS: Baclofen 10 MG TAB PO ×3 (07:48→20:18)
[2020-08-03] MEDS: Cetirizine 10 MG TAB PO (07:48)
[2020-08-03 09:15] LABS: Abs Immature Grans 0.94 10^3/uL (0.0-0.06); HCT 27.8 % (36.0-46.0); MCH 29.6 pg (27.0-33.0); MCHC 32.4 % (32.0-36.0); MCV 91.4 fL (80-95); MPV 9.9 fL (8.0-11.0); Nucleated RBC 0 %; Platelet Count 141 10^3/uL (130-400); RBC 3.04 10^6/uL (3.93-5.22); RDW-SD 45.7 fL; WBC 19.07 10^3/uL (4.4-10.8)
[2020-08-03 09:33] LABS: Magnesium 1.6 mg/dL (1.8-2.4)
[2020-08-03 09:53] LABS: Absolute Lymphocyte Count 2.29 10^3/uL (1.2-3.4); Absolute Monocyte Count 0.57 10^3/uL (0.1-0.8); Absolute Neutrophil Count 15.45 10^3/uL (1.2-6.7)
[2020-08-03 09:54] LABS: Diff Comment Manual Differential; Metamyelocytes % 3; Myelocytes % 2; Polychromasia Present
[2020-08-03 10:35] LABS: Transferrin 132 mg/dL (201-352)
[2020-08-03] MEDS: LORazepam 2 MG/ML VIAL 0.5 MG IVP (11:13)
--- NOTE | 2020-08-03 11:16 | PDOC.CMPRO ---
Care Management Progress Note S/O: Dr. Kim consult resulted in need for further work up. Lorri struggled with increased anxiety around her diagnosis and findings recommending endometrial biopsy as an outpatient with Dr. Hillman. Joanna; [employer] provided ongoing support and Lorri reported wanting Joanna to return tomorrow as well. Per MALIA Vega; Lorri has many questions that will be deferred to her oncologist upon follow up. Lorri's remains at her bedside and both were struggling with new information and concerns moving forward. CM continues to follow. A: 70 year old female admitted to [facility] 07/31/20 for Vomiting P: Lorri will return home when ready per MD. She will follow up with her PCP, oncologist and plan of care as prescribed. CM faxed referral to [facility]. She will transport via private vehicle with family.
[2020-08-03 11:47] LABS: Path Consult (Tech Order) C
--- NOTE | 2020-08-03 12:36 | W.PM.PROGNOT ---
Date of Service Date of service: 08/03/20 Time of Service: 12:37 Assessment and Plan Assessment and plan (1) Headache: Start date: 08/03/20 Start time: 12:45 Status: Acute Assessment and plan: Improved. LP negative for meningitis. Ceftrixone continued, ampicillin and vanco dcd. Leukocytosis improving. Symptoms improving. Blood cultures negative NGTD No clear site or source Will dc home [place] Qualifiers: Headache chronicity pattern: acute headache Intractability: intractable (2) Leukocytosis, unspecified: Start date: 08/03/20 Start time: 12:50 Status: Acute Assessment and plan: No infectious source noted. No fever. UA normal. No resp symptoms Decreased As above Qualifiers: Leukocytosis type: other Qualified Code(s): D72.828 - Other elevated white blood cell count (3) Intractable vomiting: Start date: 08/03/20 Start time: 12:51 Status: Resolved Assessment and plan: Resolved. Able to tolerate soft diet Qualifiers: Nausea presence: with nausea (4) Breast cancer: Start date: 08/03/20 Start time: 12:51 Status: Chronic Assessment and plan: In treatment with chemotherapy; s/p second round on 07/22/2020 Qualifiers: Breast location: unspecified site of breast Estrogen receptor status: positive Patient sex: female Laterality: right Qualified Code(s): C50.911 - Malignant neoplasm of unspecified site of right female breast; Z17.0 - Estrogen receptor positive status [ER+] (5) Increased endometrial stripe thickness: Start date: 08/03/20 Start time: 12:51 Status: Acute Assessment and plan: Pelvic u/s revealing 6 mm thickened stripe, recommend endometrial biopsy Gynecology aware, will see patient today and follow up as an outpatient for biopsy (6) Renal insufficiency: Start date: 08/03/20 Start time: 12:52 Status: Chronic Assessment and plan: Improved. Normal renal function (7) Hypokalemia: Start date: 08/03/20 Start time: 12:53 Status: Resolved Assessment and plan: 3.8 IV replacement. above case discussed with Dr. Ashley who is in agreement. (8) Hypomagnesemia: Start date: 08/03/20 Start time: 12:53 Status: Acute Assessment and plan: Repeleted with IV mag Above case discussed with Dr. Ashley who is in agreement. Subjective Subjective Patient reports: other Interval history since last seen: Patient is tearful today, c/o nausea however she is also very anxious. PRN ativan, will schedule for anxiety. U/S reveals for 6 mm strip, gynocology consulted. Spoke with patient about results. At this time she has not processed any of her illness. Asked if Joanna from [employer] could speak with her. Patient agreeable to speaking with Joanna for support. Exam Narrative Exam Narrative: Elderly female, with thinning hair due to chemo, sitting up in bed, anxious tearful, AAOx3, appears ill.Neck pain improved, REES improved, c/o nausea though i do think this is also in part due to anxiety; . LSC, RRR no murmur or ectopic beats. No JVD or CVA. FROM with all extremities. Abd soft nontender, BSx4 Objective Last Vital Signs Temp 36.9 C 08/03/20 07:27 Pulse 89 08/03/20 07:27 Resp 18 08/03/20 07:27 BP 147/84 H 08/03/20 07:27 Pulse Ox 96 08/03/20 07:27 Laboratory Results - last 24 hr 07/31/20 08/02/20 08/02/20 11:07 09:10 11:34 WBC RBC Hgb Hct MCV MCH MCHC RDW Plt Count MPV Immature Gran % Neutrophils % Lymphocytes % Monocytes % Eosinophils % Basophils % Metamyelocytes % Myelocytes % Nucleated RBC % Absolute Neutrophils Absolute Lymphocytes Absolute Monocytes Absolute Eosinophils Absolute Basophils RBC Morphology Polychromasia Xanthochromia Magnesium Transferrin 132 L CSF Tube Number CSF Color CSF Clarity CSF WBC CSF RBC CSF Diff Comment CSF Enterovirus (PCR) Negative Path Cons Comment C 08/02/20 08/03/20 08/03/20 11:34 08:08 08:08 WBC 19.07 H D RBC 3.04 L Hgb 9.0 L Hct 27.8 L MCV 91.4 MCH 29.6 MCHC 32.4 RDW 14.0 Plt Count 141 MPV 9.9 Immature Gran % See Differential Neutrophils % 81.0 Lymphocytes % 12.0 Monocytes % 3.0 Eosinophils % 0.0 Basophils % 0.0 Metamyelocytes % 3 Myelocytes % 2 Nucleated RBC % 0 Absolute Neutrophils 15.45 H Absolute Lymphocytes 2.29 Absolute Monocytes 0.57 Absolute Eosinophils 0.00 Absolute Basophils 0.00 RBC Morphology See below Polychromasia Present Xanthochromia Absent Magnesium 1.6 L Transferrin CSF Tube Number 4 CSF Color Colorless CSF Clarity Clear CSF WBC 1 CSF RBC 1 CSF Diff Comment CSF Enterovirus (PCR) Path Cons Comment
--- NOTE | 2020-08-03 13:19 | W.NUTRFU ---
Date of service: 08/03/20 Time of Service: 13:19 Nutritional Follow up NOTE: 70 year old female admitted with intractable vomiting. Recent dx of Breast CA, undergoing treatment with chemo. BMI wnl but has lost 13 lbs in last 3 months (-11%) considered significant and of concern, typically seen in malnutrition in context of acute illness. At high risk for nutritional decline. Vomiting has ceased, now able to complete 100% of meals. Unable to visit today as pt sleeping. Will visit tomorrow and provide education and support for optimal intake. Time Spent in Nutritional Counseling and Treatment: 0 time spent face to face
[2020-08-03] MEDS: MAGNESIUM SULFATE 4 GM/100 ML BAG IVPB (13:25)
--- NOTE | 2020-08-03 15:02 | CHAPLAIN ---
Hospitalist DATA SME asked me to visit Lorri as she was recently diagnosed with breast cancer, had her first two treatments and today learned from Dr. Martinez that further testing will be necessary. Lorri started crying shortly after we began talking. She said she didn't understand why this was happening to her as no one in her family has had cancer and she said perhaps God was testing her. We talked about how bad things happen to good people all the time and life can seem very unfair. She acknowledged the she knew good people who had to struggle with illnesses and other bad things. During our conversation, Lorri said she was from [place], originally from [employer]. She and her live and work at [facility] in the summer time. 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 Lorri was dealing with a lot of pain, seemed to be in her legs, and was unable to identify what would make more comfortable or relax her. Her Gilson arrived, and later spoke with the Hospital DATA SME in the afternoon. I will continue to visit.
[2020-08-03] MEDS: LORazepam 1 MG TAB PO ×2 (15:29→20:18)
[2020-08-03 16:00] VITALS: BP 159/84; PULSE 86; RESP 18; TEMP 36.8; O2SAT 97
[2020-08-03 20:15] VITALS: BP 126/78; PULSE 99; RESP 18; TEMP 37; O2SAT 96
[2020-08-03] MEDS: Pantoprazole 40 MG VIAL IVP (22:58)
[2020-08-03] MEDS: Zolpidem 5 MG TAB PO (23:48)
[2020-08-04 03:52] VITALS: BP 129/79; PULSE 110; RESP 17; TEMP 37; O2SAT 97
[2020-08-04] MEDS: POTASSIUM CHLORIDE/0.9% NACL 1,000 ML 100 MEQ IV (04:38)
[2020-08-04 07:50] VITALS: BP 124/68; PULSE 95; RESP 18; TEMP 36.4; O2SAT 95
[2020-08-04 08:19] LABS: Anion Gap 7.5 mmol/L (3-11); BUN 5 mg/dL (7-18); CO2 25.5 mmol/L (21.0-32.0); CREATININE 0.87 mg/dL (0.55-1.02); Calcium 8.2 mg/dL (8.5-10.1); Chloride 107 mmol/L (98-107); Glucose 89 mg/dL (74-106); Sodium 140 mmol/L (136-145)
[2020-08-04 08:22] LABS: Abs Immature Grans 0.62 10^3/uL (0.0-0.06); HCT 27.3 % (36.0-46.0); HGB 8.9 g/dL (11.2-15.7); MCH 29.5 pg (27.0-33.0); MCHC 32.6 % (32.0-36.0); MCV 90.4 fL (80-95); MPV 9.8 fL (8.0-11.0); Nucleated RBC 0 %; Platelet Count 129 10^3/uL (130-400); RBC 3.02 10^6/uL (3.93-5.22); RDW 14.1 % (11.7-14.6); RDW-SD 45.7 fL; WBC 15.13 10^3/uL (4.4-10.8)
[2020-08-04 08:28] LABS: Magnesium 2.2 mg/dL (1.8-2.4)
[2020-08-04] MEDS: Cetirizine 10 MG TAB PO (08:33)
[2020-08-04] MEDS: cefTRIAXone 2 GM/50 ML BAG IVPB (08:33)
[2020-08-04] MEDS: LORazepam 1 MG TAB PO (08:33)
[2020-08-04] MEDS: Baclofen 10 MG TAB PO (08:33)
[2020-08-04 08:51] LABS: Absolute Basophil Count 0.15 10^3/uL (0.0-0.2); Absolute Lymphocyte Count 0.91 10^3/uL (1.2-3.4); Absolute Monocyte Count 1.51 10^3/uL (0.1-0.8); Absolute Neutrophil Count 12.41 10^3/uL (1.2-6.7); Bands % 3; Diff Comment Manual Differential; Metamyelocytes % 1; RBC Morphology Normal
--- NOTE | 2020-08-04 12:09 | W.NUTCONSULT ---
Date of service: 08/04/20 Time of Service: 12:09 Nutritional Consult ASSESSMENT: Attempted to visit with Lorri today, would not wake up, nursing reports eating very little today. Has lost 11% of weight in last 6 months as result of starting chemotherapy, admitted with intractable vomiting and renal insufficiency. Presents with malnutrition in context of acute illness while undergoing chemotherapy. Estimated Needs: 2887-0791 kcal, 53-63 g protein, 1600 ml fluid. NUTRITIONAL DIAGNOSIS: malnutrition INTERVENTION: soft bite size diet ensure BID or CIB bid to supplement po intake MONITORING AND EVALUATION: weight, po intake, labs Time Spent in Nutritional Counseling and Treatment: 0 time spent face to face
--- NOTE | 2020-08-04 12:18 | DSE_ITS ---
Date of service: 08/04/20 Time of Service: 12:18 DS: Diagnosis Discharge Diagnosis (1) Headache: Status: Acute (2) Leukocytosis, unspecified: Status: Acute (3) Intractable vomiting: Status: Resolved (4) Breast cancer: Status: Chronic (5) Increased endometrial stripe thickness: Status: Acute (6) Renal insufficiency: Status: Chronic (7) Hypokalemia: Status: Resolved (8) Hypomagnesemia: Status: Acute Discharge Plan Disposition Patient Disposition: HOME Condition: Stable Discharge Details Reason For Visit: VOMITING Admit Date/Time: 08/02/20 08:07 Admit Provider: Matthew Santo Attending Provider: Matthew Santo [facility] Care [facility] Hospital Course: This is a 70 year old female that presented to the emergency department with chief complaint of Vomiting. She has a recent breast cancer diagnoses. She completed her second round of chemotherapy on 07/22/2020 and has had 2-3 days of N/V along with a headache. No radiation tx. Her N/V are worsened with oral intake. No fever, chills, shortness of breath, syncope. Labs significant for elevated WBC count of 26.46, Hgb of 10.9, platelets 174. K+ 3.4, Na 135, BUN 13, creatinine 1.2. Lipase 123. received IV fluids, antiemetics and morphine. CT scan of the head without acute findings. CT chest/abd/pelvis no evidence of acute abnormality, no evidence of metastatic disease. She was admitted to med/surg for further management and evaluation. She was placed on broad spectrum antibiotics while awaiting cultures, no obvious source of infection noted. She continued to have headache which was thought to be migraine. she was given imitrex with moderate improvement in symptoms. She was able to advance her diet and was tolerating it well. Her white count trended downward, antibiotics down to ceftriaxone only with ongoing improvement in white count. cultures have remained negative. it is possible that her dexamethasone post chemo cause her leukocytosis but d/t her immunocompromised state, felt it was prudent to complete a 7 day course of antibiotics. will down step to cefpodoxime to complete 7 [address] course. noted on CT was increased endometrial stripe thickness, pelvic u/s revealing 6 mm thickened stripe, recommended endometrial biopsy, Gynecology consulted and recommend follow up as an outpatient for biopsy. case discussed with DR Ashley who is in agreement with discharge plan Home Meds and New Rx's Prescriptions: New cefpodoxime 200 mg tablet 200 mg PO BID Qty: 9 RF: 0 Continued ibuprofen 200 MG tablet 400 - 600 mg PO PRN RF: 0 Cholest Off 450 MG tablet 2 tab PO BID RF: 0 docusate sodium 50 mg Capsule 50 mg PO DAILY PRNRF: 0 prochlorperazine maleate 10 mg Tablet 10 mg PO Q6H PRNRF: 0 tramadol 50 mg Tablet 50 mg PO Q8H PRNRF: 0 lorazepam 0.5 mg Tablet 0.5 mg PO Q4H PRN PRNRF: 0 dexamethasone 2 mg Tablet See Rx Instructions .ROUTE .COMPLEX RF: 0 omeprazole 20 mg Capsule,Delayed Release(Dr/Ec) 20 mg PO DAILY RF: 0 loratadine [Claritin] 10 mg Tablet 10 mg PO DAILY RF: 0 ondansetron HCl 4 MG tablet 8 mg PO Q8H PRN RF: 0 Discharge Instructions Instructions: Acute Nausea and Vomiting (ED) Additional Instructions: complete antibiotics as directed. advance diet as tolerated, drink at least 6-8 glasses of water daily to stay well hydrated. Referrals: Jelena Jaramillo NP [Primary Care Provider] - Osmin Alex [ NON-[facility] STAFF PHYSICIAN] - Activity:: Activity as Tolerated Equipment/Supplies:: No Equipment Needed Diet:: As Tolerated Discharge Orders Discharge Orders: Discharge Order (Routine); Ordered 08/04/20 Ordered By: Mireya Parish DS: Summary Status at Discharge Functional status at discharge: independent ambulation Overall status at discharge: patient is progressing back to baseline Mental Status: mental status grossly normal Speech and Movement: speech and movement normal Mood: congruent mood Affect: normal affect Exam Const General: cooperative, comfortable, no acute distress and frail appearing Nutritional Appearance: thin Orientation: alert, awake and oriented x3 HENMT Head: normal to inspection, normocephalic and atraumatic Mouth: oral mucosae normal Resp Effort & Inspection: normal respiratory effort Auscultation: clear to auscultation bilaterally Cardio Rate: regular rate Rhythm: regular rhythm GI Inspection: normal to inspection Palpation: soft Auscultation: normal bowel sounds Skin General skin exam: no rashes or lesions noted Neuro General: patient alert, patient awake and patient oriented x3 Cranial Nerves: CN's II-XI intact bilaterally Extrem General: normal to inspection, full ROM and no pedal edema Psych Mental Status: mental status grossly normal Speech and Movement: speech and movement normal Mood: congruent mood Affect: normal affect DS: Data Vitals/I&O Vitals and I&O: Vital Signs Temperature 36.4 C L 08/04/20 07:50 Temperature Source Temporal Artery Scan 08/04/20 07:50 Pulse 95 H 08/04/20 07:50 Pulse Rhythm Regular 08/04/20 10:08 Pulse 109 H 07/31/20 16:50 Respiratory Rate 18 08/04/20 07:50 Respiratory Effort Non-Labored 08/04/20 10:08 Respiratory Depth Normal 08/04/20 10:08 Respiratory Pattern Normal 08/04/20 10:08 Blood Pressure 124/68 08/04/20 07:50 Blood Pressure Mean 78 07/31/20 16:31 Blood Pressure Position Sitting 07/31/20 10:30 Pulse Oximetry 95 08/04/20 07:50 Oxygen Delivery Method Room Air 08/04/20 07:50 Oxygen Flow Rate 0 08/04/20 07:50 Pain Level 4 08/04/20 07:50 Comment 08/03/20 03:10 Intake & Output 08/03/20 08/04/20 08/04/20 23:59 11:59 23:59 Intake Total 1310 / 2399.333 1020 / 1020 Output Total 1500 / 2900 2525 / 2525 Balance -190 / -500.667 -1505 / -1505 Intake: IV 1020 / 2109.333 1020 / 1020 Oral 290 / 290 Output: Urine 1500 / 2900 2525 / 2525 Other: Urine Color Pale Yellow Yellow Urine Appearance Clear Clear Urine Odor Normal None Voiding Methods Bedside Commode Toilet Data Completed and Pending Labs on day of discharge: Labs from last 24 hours 08/04/20 08/04/20 08/04/20 07:45 06:20 06:20 WBC 15.13 H RBC 3.02 L Hgb 8.9 L Hct 27.3 L MCV 90.4 MCH 29.5 MCHC 32.6 RDW 14.1 Plt Count 129 L MPV 9.8 Immature Gran % See Differential Neutrophils % 79.0 Band Neutrophils % 3 Lymphocytes % 6.0 Monocytes % 10.0 Eosinophils % 0.0 Basophils % 1.0 Metamyelocytes % 1 Nucleated RBC % 0 Absolute Neutrophils 12.41 H Absolute Lymphocytes 0.91 L Absolute Monocytes 1.51 H Absolute Eosinophils 0.00 Absolute Basophils 0.15 RBC Morphology Normal Sodium 140 Potassium 4.0 Chloride 107 Carbon Dioxide 25.5 Anion Gap 7.5 BUN 5 L Creatinine 0.87 Estimated GFR/1.73 m2 >= 60.00 Glucose 89 Calcium 8.2 L Magnesium 2.2 Preliminary micro results at discharge 08/02/20 08:26 Blood Culture - Preliminary Blood NO GROWTH 48 HOURS 08/02/20 08:12 Blood Culture - Preliminary Blood NO GROWTH 48 HOURS 08/02/20 11:34 Body Fluid Culture - Preliminary Cerebrospinal Fluid [facility] Medical History Breast mass, right Surgical History Biopsy of breast NEG X 2 Colonoscopy - IV Sedation (~09/2006) Family History Mother Heart disease [place] Father Heart disease [place] Sister No problems noted. Sister No problems noted. Brother Heart disease [place] Social History Smoking/Tobacco Use Status: Never Substance use type: does not use Do you feel safe at home: Yes Do you feel safe in your relationship?: Yes
--- NOTE | 2020-08-04 13:50 | PDOC.CMDIS ---
- If Service Date Differs Date of service: 08/04/20 Time of Service: 13:50 LACE Index Scoring Tool - Questions: Length of Stay (in days): 2 Acuity (Admit via E.D.?): Yes Comorbidities: Any Tumor E.D. Visits: 1 - Answers: Total Score: 8 Risk of Readmission: Low Risk Care Management Discharge Reason for Hospitalization: Vomitting Discharge Plan: Lorri will be discharged home when she is more alert. She recieved antimetics this morning as well as ativan and continues to be pretty sleepy. She states that she just wants to wake up. Spouse will pick her up when she is ready for discharge. She has a plan to manage her nasuea at home, she continues to be followed by [facility] and primary care. Patient/Family Education Needs: Discharge education, limitations and follow up plan of care including ask me three and self management. Spouse should be present during instruction.
--- NOTE | 2020-08-04 14:50 | CHAPLAIN ---
Lorri was sitting up in her chair when I visited. Her was sitting next to her. She was sleeping on and off, but thanked me again for her prayer shawl and asked me to pray for her. Her , Gilson, said they are going back to their camper at [facility],and if Lorri isn't comfortable enough there, they will go home t [place], but there are fewer people around [place], he said.
[2020-08-04 15:58] VITALS: BP 137/77; PULSE 85; RESP 20; TEMP 37.1; O2SAT 97
[2020-08-04] MEDS: Heparin 500 UNITS/5 ML SYRINGE IVP (16:13)
== END 2020-08-04 16:44 | disposition home or self-care (01) | DRG 392 ==
LOC: ER 17:12 → MS 17:17
PROVIDERS: Nurse Practitioner Family; Admitting Provider Family Medicine; Emergency Provider Emergency Medicine; PCP Nurse Practitioner Family; Visit Provider Family Medicine
DX: R11.2 Nausea with vomiting, unspecified (principal); T45.1X5A Adverse effect of antineoplastic and immunosuppressive drugs, initial encounter; R51 Headache; E86.0 Dehydration; N18.9 Chronic kidney disease, unspecified; E87.6 Hypokalemia; D72.829 Elevated white blood cell count, unspecified; C50.911 Malignant neoplasm of unspecified site of right female breast; Z17.0 Estrogen receptor positive status [ER+]; G43.909 Migraine, unspecified, not intractable, without status migrainosus; M54.2 Cervicalgia; E83.42 Hypomagnesemia; R93.89 Abnormal findings on diagnostic imaging of other specified body structures
CPT/HCPCS: 36415; 36591; 74177; 80048; 80053; 82945; 83690; 84145; 87040; 87498; 89050; 89051; 93005; 96361; 96365; 96366; 96375; 96376; 99222; 99233; 99239; 99285; J1650; U0003; 70450; 71260; 76830; 76856; 81003; 81015; 82607; 82746; 83540; 83605; 83735; 84157; 84466; 84484; 85025; 86140; 87070; 87205; 93010; 99219; 99226; G0378; J0131; J0290; J1885; J2060; J2405; J3475; J3490

== ENCOUNTER 2020-12-24 01:15 | Outpatient (CLI) | payer MEDICARE, BC, SELFPAY ==
--- NOTE | 2020-12-24 13:30 | DI.US_ITS ---
APPROVED REPORT EXAM: Comprehensive 2D, Doppler, and color-flow Echocardiogram Patient Location: Out-Patient Rubber Ball Finisher: Hilda Yee RDCS (AE) Indications: h/o Chemo, Breast Cancer Other Information Study Quality: Adequate Conclusion Left Ventricle : The left ventricle is normal size. There is normal left ventricular wall thickness. The left ventricular systolic function is normal. The left ventricular ejection fraction is within th e normal range. There is normal LV segmental wall motion. LVEF is 58%. Global longitudinal strain is -16.6%. Right Ventricle : The right ventricle is normal size. The right ventricular systolic function is norm al. The RVSP is 21.8mmHg. Atria : The left atrium size is normal. The right atrium size is normal. Valves: There is no hemodynamically significant valvular disease. Great Vessels : The aortic root is normal in size. The ascending aorta is normal in size. Aortic arch is normal in caliber. IVC is normal in size and collapses >50% with inspiration. Please see remainder of study for further details. There is no prior study available in our system for comparison. Wall motion Left Ventricle The left ventricle is normal size. The left ventricular systolic function is normal. The left ventric ular ejection fraction is within the normal range. There is normal left ventricular wall thickness. T here is normal LV segmental wall motion. There is no ventricular septal defect visualized. LVEF is 58 %. Global longitudinal strain is -16.6%. Right Ventricle The right ventricle is normal size. The right ventricular systolic function is normal. The RVSP is 21 .8mmHg. Atria The left atrium size is normal. The right atrium size is normal. The interatrial septum is intact wit h no evidence for an atrial septal defect. Aortic Valve The aortic valve is normal in structure. Aortic valve is trileaflet. There is no aortic valvular sten osis. Trace aortic regurgitation. Mitral Valve The mitral valve is normal in structure. No evidence of mitral valve stenosis. Trace mitral regurgita tion. Tricuspid Valve The tricuspid valve is normal in structure. There is no tricuspid valve stenosis. Mild tricuspid regu rgitation. Pulmonic Valve The pulmonary valve is normal in structure. There is no pulmonic valvular stenosis. There is no pulmo kiel valvular regurgitation. Great Vessels The aortic root is normal in size. The ascending aorta is normal in size. Aortic arch is normal in ca liber. IVC is normal in size and collapses >50% with inspiration. Pericardium There is no pericardial effusion. 2D Dimensions IVSD d PLAX 0.80 cm F: 0.6-1.0 LV Vol A2C d MOD 41.1 mL LVPW d PLAX 0.79 cm F: 0.6 - 1.0 LV Vol A4C d MOD 61.0 mL LVID d PLAX 4.10 cm F: 3.8 - 5.2 LA vol/ BSA A2C s A-L 15.1 mL/m2 LVDs 2.75 cm F: 2.2 - 3.5 LA vol/ BSA A4C s A-L 19.7 mL/m2 Ao Root d 2.81 cm F: 2.7 - 3.3 LA Vol/ BSA Biplane s A-L 17.3 mL/m2 RA Area A4C 10.19 cm2 LA Area A4C s MOD 12.08 cm2 RA Vol/ BSA A4C s A-L 13.8 mL/m2 LA Area A2C s MOD 10.54 cm2 Ao Asc Diam d 3.16 cm F: 2.3 - 3.1 LV EF A4C MOD 58.2 % LV EF Teichholz 60.2 % LV EF A2C MOD 58.0 % LVEF (Weiss's) 56.42 % F: 54 - 74 LV EF Biplane MOD 56.4 % LV Volume 42.61 mL F: 46 - 106 SV 28.67 mL LV Volume Index 28.98 mL/m2 F: 29 - 61 SV Index 19.41 mL/m2 LV Vol Biplane MOD 50.8 mL FS 31.70 % M-Mode TAPSE 2.33 cm (M/F) >1.7 Aortic Valve LVOT Area 3.20 cm2 AoV Area Vmax 2.88 cm2 LVOT Vmax 1.23 m/s AoV Area/ BSA (Vmax) 1.95 cm2/m2 LVOT Mean Sebas. 0.70 m/s AYLIN Mean Sebas. 2.38 cm2 LVOT Peak Grad 6.0 mmHg AYLIN Mean Sebas. Index 1.61 cm2/m2 LVOT Mean Grad 2.4 mmHg AR DT 1018 msec LVOT VTI 0.183 m AR PHT 295 msec LVOT Diam s 2.00 cm AoV Vmax 1.36 m/s Velocity Ratio 0.90 AoV Mean Sebas. 0.94 m/s AoV Peak Grad 7.4 mmHg LVOT SV 58.38 mL AoV Mean Grad 3.9 mmHg AoV VTI 0.200 m AoV Area VTI 2.92 cm2 AoV Area/ BSA (VTI) 1.98 cm/m2 Pulmonary Valve PV Vmax 0.89 (0.5-1.5 m/s) RVOT Peak Gr. 2.95 mmHg PV Peak Grad 3.2 mmHg RVOT Mean Gr. 1.55 mmHg PV Mean Grad 1.5 mmHg RVOT VTI 0.139 m PV VTI 0.129 m RVOT Vmax 0.86 m/s Tricuspid Valve TR Peak Grad 18.7 mmHg TR Vmax 2.17 m/s RA Pressure 3.00 mmHg RVSP (TR) 21.8 mmHg
== END 2020-12-24 01:16 | disposition home or self-care (01) ==
LOC: DI 01:16
PROVIDERS: PCP Nurse Practitioner Family; Visit Provider Internal Medicine Medical Oncology
DX: Z01.818 Encounter for other preprocedural examination (principal); C50.911 Malignant neoplasm of unspecified site of right female breast; Z17.1 Estrogen receptor negative status [ER-]
CPT/HCPCS: 93306